=== PATIENT | male | born 1990 ===

== ENCOUNTER 2017-07-08 14:38 | Emergency (ER) | payer MEDICAID ==
[2017-07-08 14:48] VITALS: BP 120/79
--- NOTE | 2017-07-08 16:37 | UC ---
Magda Cuello Gabriel, scribed for Marty Campos MD on 07/08/17 at 1458 . Throat Pain/Nasal Avelino HPI - HPI Summary HPI Summary: This patient is a 27 year old M presenting [place] [facility] [place] complaint of sore throat that began last night. The patient rates the pain 4/10 in severity. Patient reports weakness, chills, and a slightly productive cough. Patient denies fever and rhinorrhea. - History of Current Complaint Chief Complaint: UCRespiratory Stated Complaint: SORE THROAT, WEAKNESS Time Seen by Provider: 07/08/17 14:50 Hx Obtained From: Patient Onset/Duration: Still Present Severity: Mild Pain Intensity: 4 Pain Scale Used: 0-10 Numeric Cough: Productive Associated Signs & Symptoms: Positive: Other - weakness, chills, and a slightly productive cough - Allergies/Home Medications Allergies/Adverse Reactions: Allergies Allergy/AdvReac Type Severity Reaction Status Date / Time Penicillins Allergy Rash Verified 07/08/17 14:48 Home Medications: Home Medications Levetiracetam XR TAB(NF) [Keppra XR (NF)] 1 tab PO TID 07/08/17 [History Confirmed 07/08/17] PMH/Surg Hx/FS Hx/Imm Hx Neurological History: Seizures Other History Of: Negative For: HIV, Hepatitis B - Surgical History Surgical History: None - Family History Known Family History: Positive: Diabetes, Other - stroke Negative: Cardiac Disease, Hypertension, Renal Disease, Respiratory Disease, Seizure Disorder, Blood Disorder - Social History Alcohol Use: Occasionally Substance Use Type: None Smoking Status (MU): Never Smoked Tobacco Review of Systems Constitutional: Chills ENT: Sore Throat Neurological: Weakness All Other Systems Reviewed And Are Negative: Yes Physical Exam Triage Information Reviewed: Yes Vital Signs: Initial Vital Signs Temp 98.1 F 07/08/17 14:46 Pulse 57 07/08/17 14:46 Resp 18 07/08/17 14:46 BP 120/79 07/08/17 14:46 Pulse Ox 99 07/08/17 14:46 Vital Signs Reviewed: Yes - Additional Comments VITAL SIGNS: Reviewed. GENERAL: Patient is a well developed and nourished M who is lying comfortable in the stretcher. Patient is not in any acute respiratory distress. HEAD AND FACE: Normocephalic EYES: PERRLA, EOMI x 2. EARS: Hearing grossly intact. MOUTH: pharyngeal erythema and rhinorrhea NECK: Supple, trachea is midline, no adenopathy, no JVD, no carotid bruit. CHEST: Symmetric, no tenderness at palpation LUNGS: Clear to auscultation bilaterally. No wheezing or crackles. CVS: Regular rate and rhythm, S1 and S2 present, no murmurs or gallops appreciated. ABDOMEN: Soft, non-tender. Bowel sounds are normal. No abdominal abnormal pulsations. EXTREMITIES: Full ROM in all major joints, no edema, no cyanosis or clubbing. NEURO: Alert and oriented x 3. No acute neurological deficits. Speech is normal and follows commands. SKIN: Dry and warm Throat Pain/Nasal Course/Dx - Course Assessment/Plan: This patient is a 27 year old M presenting [place] [facility] [place] chief complaint of sore throat that began last night. The patient rates the pain 4/10 in severity. Patient reports weakness, chills, and a slightly productive cough. Patient denies fever and rhinorrhea. Patient was negative for influenza A,B, and strep. I discussed all the findings and test results with the patient. Pt was instructed to return to the urgent care or go to ER immediately if any of the symptoms return or worsens. Plan of care was discussed with the patient and pt understands and agrees. All questions were answered to patient satisfaction. There were no further complaints or concerns. Pt was diagnosed with a URI. Medications were given. - Differential Dx/Diagnosis Differential Diagnosis/HQI/PQRI: Influenza, Otitis Media, Pharyngitis, Tonsillitis, URI Provider Diagnoses: URI Discharge - Discharge Plan Condition: Stable Disposition: HOME Prescriptions: Benzonatate CAP* [Tessalon 100 MG CAP*] 100 mg PO TID PRN #9 cap PRN Reason: Cough Patient Education Materials: Upper Respiratory Infection (ED) Referrals: [facility] [place] [facility] REFERRAL [Outside] No Primary Care Phys,NOPCP [Primary Care Provider] - Additional Instructions: Take medications as instructed Increase your fluid intake Return to the if symptoms worsen The documentation as recorded by the Magda granger Gabriel accurately reflects the service I personally performed and the decisions made by me, Marty Campos MD.
== END 2017-07-08 15:33 | disposition home or self-care (01) ==
LOC: UCEAST 14:38
DX: J06.9 Acute upper respiratory infection, unspecified (principal)
CPT/HCPCS: 87502; 87651; 99202; G0463